=== PATIENT | male | born 1985 | race Caucasian/White ===

== ENCOUNTER 2017-05-24 03:32 | Emergency (ER) | payer SELFPAY ==
[~2017-05-24] VITALS: Ht 170.2 cm; Wt 68.0 kg
--- NOTE | 2017-05-24 04:15 | NUR ---
CALLED PT IN [place], NO RESPONSE
--- NOTE | 2017-05-24 04:50 | NUR ---
CALLED PT IN [place], NO RESPONSE
== END 2017-05-24 04:51 | disposition left against medical advice (07) ==
LOC: ER 03:35
DX: Z53.21 Procedure and treatment not carried out due to patient leaving prior to being seen by health care provider (principal)
CPT/HCPCS: A4606; Z7610

== ENCOUNTER 2017-05-24 05:01 | Emergency (ER) | payer SELFPAY ==
[~2017-05-24] VITALS: Ht 165.1 cm; Wt 68.0 kg
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
--- NOTE | 2017-05-24 05:20 | NUR ---
DR CONNOR AT BEDSIDE TO EVAL.
[2017-05-24] MEDS ORDERED: ACETAMINOPHEN ES 500 MG TABLET ONE (05:28)
--- NOTE | 2017-05-24 05:58 | NUR ---
Patient discharged to home in stable condition. Written and verbal after care instructions given. Patient verbalizes understanding of instruction. pt. ambulatory with a steady gait.
[2017-05-24 05:59] VITALS: BP 130/82
[2017-05-24] MEDS ORDERED: ACETAMINOPHEN 325 MG TABLET PO ONE (06:00)
== END 2017-05-24 05:59 | disposition home or self-care (01) ==
LOC: ER 05:04
DX: S46.912A Strain of unspecified muscle, fascia and tendon at shoulder and upper arm level, left arm, initial encounter (principal); S46.911A Strain of unspecified muscle, fascia and tendon at shoulder and upper arm level, right arm, initial encounter; V49.69XA Unspecified car occupant injured in collision with other motor vehicles in traffic accident, initial encounter; Y93.89 Activity, other specified; Y92.410 Unspecified street and highway as the place of occurrence of the external cause; Y99.8 Other external cause status
CPT/HCPCS: 99282; A4606; Z7610